=== PATIENT | male | born 1985 | race African-American/Black ===

== ENCOUNTER 2016-12-17 13:28 | Emergency (ER) | payer SELFPAY ==
[~2016-12-17] VITALS: Ht 175.3 cm; Wt 81.0 kg
[2016-12-17 13:40] VITALS: BP 142/77; PULSE 91; RESP 14; TEMP 98.1; O2SAT 98
[2016-12-17 13:57] LABS: BLOOD, URINE NEG (NEG); GLUCOSE,URINE NEG (NEG); KETONE, URINE NEG (NEG); NITRITE,URINE NEG (NEG)
[2016-12-17 14:07] LABS: METHOD OF COLLECTION CLEAN CATCH; URINE COLOR YELLOW (YELLW/STRAW)
[2016-12-17 14:08] LABS: RBC, URINE 0-3 /hpf (0-3)
[2016-12-17 14:09] LABS: COMMENT (UR) CULTURE INDICATED; COMMENT2 (UR) MUCOUS PRESENT; CULTURE IF INDICATED CULTURE INDICATED
[2016-12-17] MEDS ORDERED: metroNIDAZOLE 500 MG TAB PO ONE (15:45)
[2016-12-17] MEDS ORDERED: LIDOCAINE HCL 1% 50 ML VIAL XX ONE (15:45)
[2016-12-17] MEDS ORDERED: cefTRIAXone 250 MG VIAL IM ONE (15:45)
[2016-12-17] MEDS ORDERED: AZITHROMYCIN 250 MG TAB PO ONE (15:45)
[2016-12-17] MEDS ORDERED: ONDANSETRON ODT 4 MG TAB PO/SL ONE (15:45)
--- NOTE | 2016-12-17 16:04 | PD ---
HPI Chief Complaint: Complaint Time Seen by Provider: 13:50 Travel History International Travel<30 days: No Contact w/Intl Traveler<30days: No Traveled to known affect area: No History of Present Illness HPI Patient is a 31-year-old male who presents emergency evaluation of dysuria. Patient states it's been ongoing for approximately 3 days. He denies any fever , chills, nausea, vomiting, abdominal pain. He has had unprotected sexual contact in the last 2 weeks. He has no other complaints at this time. [facility] Past Medical History Medical History: Denies Significant Hx Tetanus Vaccination: > 5 Years Influenza Vaccination: No Past Surgical History Surgical History: No Previous Surgery Social History Alcohol Use: Yes Tobacco Use: Yes Substance Use: No Allergies-Medications (Allergen,Severity, Reaction): Coded Allergies: Amoxicillin (Verified Allergy, Severe, Throat tightness, 12/17/16) Reported Meds & Prescriptions Reported Meds & Active Scripts Active No Active Prescriptions or Reported Medications Review of Systems Except as stated in HPI: all other systems reviewed are Neg Genitourinary: Positive: Dysuria Physical Exam Narrative GENERAL: Well-nourished, well-developed patient. SKIN: Warm and dry. HEAD: Normocephalic. EYES: No scleral icterus. No injection or drainage. NECK: Supple, trachea midline. No JVD or lymphadenopathy. CARDIOVASCULAR: Regular rate and rhythm without murmurs, gallops, or rubs. RESPIRATORY: Breath sounds equal bilaterally. No accessory muscle use. GASTROINTESTINAL: Abdomen soft, non-tender, nondistended. MUSCULOSKELETAL: No cyanosis, or edema. BACK: Nontender without obvious deformity. No CVA tenderness. Data Data Last Documented VS Vital Signs Date Time Temp Pulse Resp B/P Pulse Ox O2 Delivery O2 Flow Rate FiO2 12/17/16 13:40 98.1 91 14 142/77 98 Orders Urinalysis - C+S If Indicated (12/17/16 13:41) Urine Culture (12/17/16 13:43) Gc And Chlamydia Pcr (12/17/16 15:40) Azithromycin (Zithromax) (12/17/16 15:45) Ceftriaxone Inj (Rocephin Inj) (12/17/16 15:45) Metronidazole (Flagyl) (12/17/16 15:45) Ondansetron Odt (Zofran Odt) (12/17/16 15:45) Lidocaine 1% Inj (50 Ml) (Xylocaine 1% I (12/17/16 15:45) Labs Laboratory Tests Test 12/17/16 13:43 Urine Collection Type CLEAN CATCH Urine Color YELLOW Urine Turbidity CLEAR Urine pH 6.0 Urine Specific [place] 1.025 Urine Protein NEG mg/dL Urine Glucose (UA) NEG mg/dL Urine Ketones NEG mg/dL Urine Occult Blood NEG Urine Nitrite NEG Urine Bilirubin NEG Urine Leukocyte Esterase NEG Urine RBC 0-3 /hpf Urine WBC 9-14 /hpf Microscopic Urinalysis Comment CULTURE INDICATED MDM Medical Decision Making Medical Screen Exam Complete: Yes Emergency Medical Condition: Yes Interpretation(s) Laboratory Tests Test 12/17/16 13:43 Urine Collection Type CLEAN CATCH Urine Color YELLOW Urine Turbidity CLEAR Urine pH 6.0 Urine Specific [place] 1.025 Urine Protein NEG mg/dL Urine Glucose (UA) NEG mg/dL Urine Ketones NEG mg/dL Urine Occult Blood NEG Urine Nitrite NEG Urine Bilirubin NEG Urine Leukocyte Esterase NEG Urine RBC 0-3 /hpf Urine WBC 9-14 /hpf Microscopic Urinalysis Comment CULTURE INDICATED Vital Signs Date Time Temp Pulse Resp B/P Pulse Ox O2 Delivery O2 Flow Rate FiO2 12/17/16 13:40 98.1 91 14 142/77 98 Differential Diagnosis Urinary tract infection versus STI versus dermatitis versus other Narrative Course Patient is a 31-year-old male who presented to emergency for evaluation of burning with urination for the last 3 days. Vital signs are stable, he is afebrile. Patient has had a second unprotected sex. Urinalysis shows pyuria. GC and chlamydia are pending. Patient will be treated empirically at this time for GC, chlamydia, trichomoniasis. He does report a history of amoxicillin allergy. We'll monitor closely for adverse reaction to Rocephin. Patient did not have any adverse reaction to Rocephin. He was monitored for over 30 minutes in the emergency department prior to discharge. Patient was advised to avoid alcohol use for the next 3 days due to interaction with metronidazole and the possibility that could cause nausea and vomiting. He was further advised that he would be notified if his test results were positive. He was encouraged to have partner tested and/or treated prior to any new sexual intercourse. He was encouraged to follow up with [facility] for further STD screening. Patient was encouraged to return to emergency department for any new or worsening symptoms. Patient verbalizes understanding of these instructions. Patient stable for discharge. Diagnosis Primary Impression: Dysuria Additional Impression: Pyuria Referrals: [facility] Dept. Patient Instructions: Dysuria (ED), General Instructions, Safe Sex (ED), Sexually Transmitted Diseases (ED) Additional Instructions: Follow-up at the [facility] Department for further STD screening You will be notified if gonorrhea or chlamydia is positive Sexual partner should be tested for STD as well. Return to emergency department for any new or worsening symptoms Avoid alcohol for 72 hours as it may interact with metronidazole that you were given in the emergency department causing nausea and vomiting Med/Other Pt SpecificInfo: No Change to Meds Scripts No Active Prescriptions or Reported Meds Disposition: 01 DISCHARGE HOME Condition: Stable Ruth Cueto Dec 17, 2016 16:03
[2016-12-17 22:49] LABS: CHLAMYDIA PCR DETECTED (NOT DETECT); NEISSERIA PCR NOT DETECTED (NOT DETECT)
== END 2016-12-17 16:53 | disposition home or self-care (01) ==
LOC: PHED 13:28 → PHEFT 16:53
DX: R30.0 Dysuria (principal); N39.0 Urinary tract infection, site not specified; F17.210 Nicotine dependence, cigarettes, uncomplicated
CPT/HCPCS: 81001; 87086; 87491; 87591; 96372; 99283; J0696

== ENCOUNTER 2018-02-02 16:57 | Emergency (ER) | payer OTHER ==
[~2018-02-02] VITALS: Ht 180.3 cm; Wt 78.0 kg
[2018-02-02 17:05] VITALS: BP 125/69; PULSE 82; RESP 16; TEMP 97.8; O2SAT 98
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
[2018-02-02] MEDS ORDERED: CYCL10TA PO (19:06)
[2018-02-02] MEDS ORDERED: IBUP-232 PO (19:06)
== END 2018-02-02 19:36 | disposition home or self-care (01) ==
LOC: NEPE 16:57
DX: M62.838 Other muscle spasm (principal); M54.2 Cervicalgia; M54.9 Dorsalgia, unspecified; V49.50XA Passenger injured in collision with unspecified motor vehicles in traffic accident, initial encounter; Z72.0 Tobacco use
CPT/HCPCS: 72125; 72128; 72131; 99283